=== PATIENT | female | born 1995 | race Caucasian/White ===

== ENCOUNTER 2019-10-08 03:45 | Emergency (ER) | payer OTHER ==
[~2019-10-08] VITALS: Ht 177.8 cm; Wt 75.0 kg
[2019-10-08 03:54] VITALS: BP 122/61
--- NOTE | 2019-10-08 04:10 | PHYS DOC ---
Adult General Chief Complaint Chief Complaint: DENTAL PROBLEM HPI HPI 24-year-old female presents to emergency Department complaints of tooth pain. Patient states she is a bottom left wisdom tooth is coming in that started with increasing pain over the last day. Patient states she's taken some Tylenol ho wever no relief. She denies any fever. States she's had pain that's in her jaw as well as into her ear. She states she's unable to sleep. Nothing makes it worse nothing makes it better. She denies any headache or visual change, chest pain or shortness of breath. All other ROS negative unless documented in HPI Review of Systems Review of Systems See Above Current Medications Current Medications Current Medications Medications (Trade) Dose Ordered Sig/Reilly Start Time Stop Time Status Last Admin Dose Admin Bupivacaine HCl (Sensorcaine-Mpf 0.25%) 10 ml 1X ONCE 10/08/19 04:15 10/08/19 04:16 UNV Lidocaine HCl 20 ml 1X ONCE 10/08/19 04:15 10/08/19 04:16 UNV Physical Exam Physical Exam See Above Constitutional: Well developed, well nourished, distress 2/2 pain, non-toxic appearance. [] HENT: Normocephalic, atraumatic, bilateral external ears normal, oropharynx moist, no oral exudates, nose normal. Bottom left wisdom tooth with irritation to the gum, no evidence of infection appreciated on exam.[] Neck: Normal range of motion, no tenderness, supple, no stridor. [] Skin: Warm, dry, no erythema, no rash. [] Extremities: No tenderness, no cyanosis, no clubbing, ROM intact, no edema. [] Neurologic: Alert and oriented X 3, no focal deficits noted. [] Psychologic: Affect normal, judgement normal, mood normal. [] EKG EKG [] Radiology/Procedures Radiology/Procedures [] Course & Med Decision Making Course & Med Decision Making Pertinent Labs and Imaging studies reviewed. (See chart for details) []24-year-old female presents to emergency Department complaints of tooth pain. Patient states she is a bottom left wisdom tooth is coming in that started with increasing pain over the last day. Patient states she's taken some Tylenol however no relief. She denies any fever. States she's had pain that's in her jaw as well as into her ear. She states she's unable to sleep. Nothing makes it wo rse nothing makes it better. She denies any headache or visual change, chest pain or shortness of breath. Marcaine/lidocaine used for dental block 1.5ml/1.5ml of both used to inject for numbing NO evidence of infection appreciated - no antibiotic needed Recommend tylenol/motrin for pain Follow up with primary dentist Isai Disclaimer Isai Disclaimer This electronic medical record was generated, in whole or in part, using a voice recognition dictation system. Departure Departure Impression: Primary Impression: Pain, dental Disposition: HOME, SELF-CARE Condition: IMPROVED Referrals: NO PCP (PCP) Patient Instructions: Dental Pain, [id number] Additional Instructions: Follow up with dentist Marcaine/Lidocaine used for dental block Tylenol/Motrin as needed for pain at home No evidence of infection appreciated JESSICA SHELBY MD Oct 08, 2019 04:10
[2019-10-08] MEDS ORDERED: LIDOCAINE 2% 20 ML VIAL. IJ ONE (04:30)
[2019-10-08] MEDS ORDERED: BUPIVACAINE MPF 0.25% 10 ML VIAL. IJ ONE (04:30)
== END 2019-10-08 05:00 | disposition home or self-care (01) ==
LOC: ER 03:45
DX: K08.89 Other specified disorders of teeth and supporting structures (principal); R68.84 Jaw pain
CPT/HCPCS: 64400; 99284; J2001; J3490